=== PATIENT | female | born 1960 | race American Indian/Alaskan Native ===

== ENCOUNTER 2019-05-01 01:51 | Emergency (ER) | payer OTHER ==
--- NOTE | 2019-05-01 02:45 | XRay Report ---
CHEST 2 VIEWS INDICATION / CLINICAL INFORMATION: Chest Pain. COMPARISON: 01/12/2010 FINDINGS: SUPPORT DEVICES: None. HEART / MEDIASTINUM: No significant abnormality. LUNGS / PLEURA: There is minimal scarring or atelectasis in the left midlung with the left lung other schmidt clear. There is a small area of lung consolidation in the lateral right upper lobe however consi stent with acute pneumonitis in this region. No associated effusion or adenopathy. No pneumothorax. ADDITIONAL FINDINGS: No significant additional findings. IMPRESSION: 1. Minimal right upper lobe pneumonia Signer Name: Nav Lyles MD Signed: 05/01/2019 2:41 AM Workstation Name: [id number]
[2019-05-01 03:12] LABS: Basophils % (Auto) 0.6 % (0.0-1.8); Eosinophils # (Auto) 0.1 K/mm3 (0.0-0.4); Eosinophils % (Auto) 1.7 % (0.0-4.3); Hematocrit 38.8 % (30.3-42.9); Hemoglobin 13.3 gm/dl (10.1-14.3); Lymphocytes # (Auto) 1.7 K/mm3 (1.2-5.4); Lymphocytes % (Auto) 28.4 % (13.4-35.0); Mean Corpuscular HGB Conc 34 % (30-34); Mean Corpuscular Volume 83 fl (79-97); Monocytes # (Auto) 0.5 K/mm3 (0.0-0.8); Monocytes % (Auto) 8.7 % (0.0-7.3); Platelet Count 224 K/mm3 (140-440); Red Blood Count 4.69 M/mm3 (3.65-5.03); Red Cell Distribution Width 14.3 % (13.2-15.2)
[2019-05-01 03:20] LABS: INR 1.04 (0.87-1.13)
[2019-05-01 03:21] LABS: Partial Thromboplastin Time 29.9 Sec. (24.2-36.6)
[2019-05-01 03:35] LABS: Alanine Aminotransferase 10 units/L (7-56); Albumin 4.2 g/dL (3.9-5); BUN/Creatinine Ratio 16; Blood Urea Nitrogen 11 mg/dL (7-17); Calcium 9.6 mg/dL (8.4-10.2); Hemolysis Index 0
[2019-05-01] MEDS ORDERED: PROMETHAZINE 25 MG TAB PO ONE (03:38)
[2019-05-01] MEDS ORDERED: AZITHROMYCIN 250 MG TAB PO ONE (03:38)
--- NOTE | 2019-05-01 03:44 | Emergency Department Report ---
ED General Adult HPI - General Chief complaint: Chest Pain Stated complaint: CP Time Seen by Provider: 05/01/19 02:52 Source: patient Mode of arrival: Ambulatory Limitations: No Limitations - History of Present Illness Initial comments: 58-year-old female with a past medical history hypertension, lupus, and hypothyroidism developed right sided stabbing chest pain at 9 PM while at rest. Pain is worse with inspiration and radiates to the back. Patient has a mild cough and nausea without fever. She denies shortness of breath, vomiting, or diaphoresis. She denies history of PE/DVT, calf tenderness, leg edema, or recent travel. Patient does have lupus but denies current steroid use. Patient has had similar pain in the past due to pneumonia. Last episode of pneumonia was several years ago. Severity scale (0 -10): 5 - Related Data Home Medications Medication Instructions Recorded Confirmed Last Taken Citalopram [Celexa] 20 mg PO DAILY 12/20/13 12/20/13 Unknown Levothyroxine [Synthroid] 75 mcg PO DAILY 12/20/13 12/20/13 Unknown hydroCHLOROthiazide 25 mg PO DAILY 12/20/13 12/20/13 Unknown [Hydrochlorothiazide] traZODone [Desyrel] 50 mg PO QHS 12/20/13 12/20/13 Unknown Previous Rx's Medication Instructions Recorded Last Taken Type Acetaminophen [8 Hour 650 mg PO Q8HR PRN #20 tablet.er 05/01/19 Unknown Rx Acetaminophen] Azithromycin [Zithromax TAB] 250 mg PO QDAY #4 tablet 05/01/19 Unknown Rx Promethazine [Phenergan] 25 mg PO Q6HR PRN #20 tab 05/01/19 Unknown Rx Allergies Allergy/AdvReac Type Severity Reaction Status Date / Time indomethacin [From Indocin] AdvReac Unknown Verified 12/20/13 00:39 indomethacin sodium AdvReac Unknown Verified 12/20/13 00:39 [From Indocin] Sulfa (Sulfonamide AdvReac Unknown Verified 12/20/13 00:39 Antibiotics) ED Review of Systems ROS: Stated complaint: CP Other details as noted in HPI Comment: All other systems reviewed and negative ED Past Medical Hx - Past Medical History Hx Hypertension: Yes Additional medical history: LUPUS. HYPOTHYROID - Surgical History Past Surgical History?: Yes Additional Surgical History: total hysterectomy - Social History Smoking Status: Former Smoker Substance Use Type: Alcohol - Medications Home Medications: Home Medications Medication Instructions Recorded Confirmed Last Taken Type Citalopram [Celexa] 20 mg PO DAILY 12/20/13 12/20/13 Unknown History Levothyroxine [Synthroid] 75 mcg PO DAILY 12/20/13 12/20/13 Unknown History hydroCHLOROthiazide 25 mg PO DAILY 12/20/13 12/20/13 Unknown History [Hydrochlorothiazide] traZODone [Desyrel] 50 mg PO QHS 12/20/13 12/20/13 Unknown History Acetaminophen [8 Hour 650 mg PO Q8HR PRN #20 tablet.er 05/01/19 Unknown Rx Acetaminophen] Azithromycin [Zithromax TAB] 250 mg PO QDAY #4 tablet 05/01/19 Unknown Rx Promethazine [Phenergan] 25 mg PO Q6HR PRN #20 tab 05/01/19 Unknown Rx ED Physical Exam - General Limitations: No Limitations - Other Other exam information: General: No acute distress Head: Atraumatic Eyes: normal appearance ENT: Moist mucous membranes Neck: Normal appearance, no midline tenderness Chest: Clear to auscultation bilaterally, mild right upper chest wall tenderness CV: Regular rate and rhythm Abdomen: Soft, normal bowel sounds, nontender, nondistended, no rebound or guarding Back: Normal inspection Extremity: Normal inspection infection, full range of motion, no calf tenderness or leg edema Neuro: Alert O x 3, no facial asymmetry, speech clear, no gross motor sensory deficit Psych: Appropriate behavior Skin: No rash ED Course Vital Signs 05/01/19 05/01/19 01:56 02:51 Temperature 98.6 F 98.3 F Pulse Rate 82 71 Respiratory 18 13 Rate Blood Pressure 128/72 Blood Pressure 143/81 [Right] O2 Sat by Pulse 98 99 Oximetry ED Medical Decision Making - Lab Data Result diagrams: 05/01/19 02:11 05/01/19 02:11 Lab Results 05/01/19 05/01/19 05/01/19 Range/Units 02:11 02:11 02:11 WBC 6.1 (4.5-11.0) K/mm3 RBC 4.69 (3.65-5.03) M/mm3 Hgb 13.3 (10.1-14.3) gm/dl Hct 38.8 (30.3-42.9) % MCV 83 (79-97) fl MCH 28 (28-32) pg MCHC 34 (30-34) % RDW 14.3 (13.2-15.2) % Plt Count 224 (140-440) K/mm3 Lymph % (Auto) 28.4 (13.4-35.0) % [place] % (Auto) 8.7 H (0.0-7.3) % Eos % (Auto) 1.7 (0.0-4.3) % Baso % (Auto) 0.6 (0.0-1.8) % Lymph # 1.7 (1.2-5.4) K/mm3 [place] # 0.5 (0.0-0.8) K/mm3 Eos # 0.1 (0.0-0.4) K/mm3 Baso # 0.0 (0.0-0.1) K/mm3 Seg Neutrophils % 60.6 (40.0-70.0) % Seg Neutrophils # 3.7 (1.8-7.7) K/mm3 PT 13.7 (12.2-14.9) Sec. INR 1.04 (0.87-1.13) APTT 29.9 (24.2-36.6) Sec. D-Dimer 233.60 (0-234) ng/mlDDU Sodium 141 (137-145) mmol/L Potassium 4.3 (3.6-5.0) mmol/L Chloride 101.9 (98-107) mmol/L Carbon Dioxide 26 (22-30) mmol/L Anion Gap 17 mmol/L BUN 11 (7-17) mg/dL Creatinine 0.7 (0.7-1.2) mg/dL Estimated GFR > 60 ml/min BUN/Creatinine Ratio 16 % Glucose 95 (65-100) mg/dL Calcium 9.6 (8.4-10.2) mg/dL Total Bilirubin 0.40 (0.1-1.2) mg/dL AST 17 (5-40) units/L ALT 10 (7-56) units/L Alkaline Phosphatase 105 (35-129) units/L Troponin T < 0.010 (0.00-0.029) ng/mL Total Protein 8.3 H (6.3-8.2) g/dL Albumin 4.2 (3.9-5) g/dL Albumin/Globulin Ratio 1.0 % - EKG Data -: EKG Interpreted by Me EKG shows normal: sinus rhythm, ST-T waves (no stemi) Rate: normal - Radiology Data Radiology results: report reviewed CHEST 2 VIEWS INDICATION / CLINICAL INFORMATION: Chest Pain. COMPARISON: 01/12/2010 FINDINGS: SUPPORT DEVICES: None. HEART / MEDIASTINUM: No significant abnormality. LUNGS / PLEURA: There is minimal scarring or atelectasis in the left midlung with the left lung otherwise clear. There is a small area of lung consolidation in the lateral right upper lobe however consistent with acute pneumonitis in this region. No associated effusion or adenopathy. No pneumothorax. ADDITIONAL FINDINGS: No significant additional findings. IMPRESSION: 1. Minimal right upper lobe pneumonia - Medical Decision Making Chest x-ray sick just that of pneumonia. Patient declined offer for pain medication as his pain at improved after taking aspirin. Mild nausea reported. - Differential Diagnosis PE, pneumonia, pleurisy, pneumothorax, MSK pain Critical Care Time: No Critical care attestation.: If time is entered above; I have spent that time in minutes in the direct care of this critically ill patient, excluding procedure time. ED Disposition Clinical Impression: Right upper lobe pneumonia, Pleuritic chest pain Disposition: TO HOME OR SELFCARE Is pt being admited?: No Condition: Stable Instructions: Community-acquired Pneumonia (ED), Pleurisy (ED) Additional Instructions: Take the medication as prescribed. Follow-up with your doctor or doctor/clinic provided. Return if symptoms worsen as indicated by your discharge instructions. Prescriptions: Acetaminophen [8 Hour Acetaminophen] 650 mg PO Q8HR PRN #20 tablet.er PRN Reason: Pain , Severe (7-10) Promethazine [Phenergan] 25 mg PO Q6HR PRN #20 tab PRN Reason: Nausea Azithromycin [Zithromax TAB] 250 mg PO QDAY #4 tablet Referrals: PRIMARY CARE, [Primary Care Provider] - 3-5 Days Time of Disposition: 03:46
[2019-05-01 04:22] VITALS: BP 147/73
== END 2019-05-01 04:22 | disposition home or self-care (01) ==
LOC: ED 01:51
DX: J18.1 Lobar pneumonia, unspecified organism (principal); E03.9 Hypothyroidism, unspecified; Z90.710 Acquired absence of both cervix and uterus; Z87.891 Personal history of nicotine dependence; Z79.899 Other long term (current) drug therapy; Z88.2 Allergy status to sulfonamides; Z88.8 Allergy status to other drugs, medicaments and biological substances
CPT/HCPCS: 36415; 71046; 80053; 84484; 85025; 85379; 85610; 85730; 93005; 93010; 99284; Q0169